=== PATIENT | female | born 1970 | race Two or more races ===

== ENCOUNTER 2018-02-24 07:30 | Inpatient (IN) ==
[2018-03-01 13:04] LABS: Basophils # 0.1 10*3/uL (0.0-0.2); Basophils % 0.9 % (0.0-0.8); Eosinophils # 0.1 10*3/uL (0.0-0.87); Eosinophils % 1.1 % (0.00-10.9); Hemoglobin 15.2 GM/DL (12.0-16.0); Immature Granulocytes % 0.4 %; Immature Granulocytes Absolute 0.03 #; Lymphocytes # 2.8 10*3/uL (1.4-4.0); Lymphocytes % 34.6 % (21.3-54.2); Mean Corpuscular HGB Conc 32.3 GM/DL (32-36); Mean Corpuscular Hemoglobin 27 PG (27-34); Mean Corpuscular Volume 83.6 FL (87-102); Mean Platelet Volume 9.1 FL (9.6-12.0); Monocytes # 0.5 10*3/uL (0.11-0.8); Monocytes % 6.7 % (1.7-12.7); Neutrophils # 4.5 10*3/uL (1.4-7.4); Neutrophils % 56.3 % (38.7-73.9); Platelet Count 297 T/CUMM (130-400); Red Blood Count 5.62 MC/CUMM (3.8-5.5); Red Cell Distribution Width 14.3 % (9.3-17.3)
[2018-03-01 13:27] LABS: Apearance,Urine CLEAR (Clear); Bilirubin,Urine Negative (Negative); Blood, Urine Negative (Negative); Glucose,Urine (UA) >=500 mg/dL (Negative); Ketones,Urine Negative (Negative); Mucus,Urine Occasional /LPF (Occasional); Nitrite,Urine Negative (Negative); Protein,Urine Negative; RBC,Urine 2 /HPF (0-4); Squamous Epithelial Cell,Urine Occasional /HPF (0-10); Urine Color Yellow (Yellow); Urine Specific Gravity 1.025 (1.001-1.035); Urine Urobilinogen < 2.0 EU/DL (0.2-1.0); WBC,Urine 4 /HPF (0-6)
[2018-03-01 13:47] LABS: Bilirubin,Total 0.7 MG/DL (0.2-1.0); Calcium 9.9 MG/DL (8.5-10.1); Potassium 4.1 MMOL/L (3.5-5.1); Risk Ratio 5.23; VLDL CHOLESTEROL 46.6 MG/DL
[2018-03-01 14:34] LABS: HIV Antigen/Antibody Result Nonreactive (Nonreactive)
[2018-03-04] MEDS ORDERED: AMPICILLIN/SULBACTAM 3,000 MG in SODIUM CHLORIDE 0.9% 100 ML IV ONE (06:00)
[2018-03-04] MEDS ORDERED: AMPICILLIN/SULBACTAM 3,000 MG VIAL ONE (07:33)
[2018-03-04] MEDS ORDERED: DIAZEPAM 5 MG TABLET PO ONE (07:55)
[2018-03-04] MEDS ORDERED: FAMOTIDINE 20 MG TABLET PO ONE (07:55)
[2018-03-04] MEDS ORDERED: SCOPOLAMINE 1.5 MG PATCH TRANSDERM ONE ×2 (07:55→08:09)
[2018-03-04] MEDS: LACTATED RINGERS 1,000 ML IV SCH ×2 (08:02→11:30)
[2018-03-04] MEDS ORDERED: FAMOTIDINE 20 MG TABLET ONE (08:09)
[2018-03-04] MEDS ORDERED: DIAZEPAM 5 MG TABLET ONE (08:09)
[2018-03-04] MEDS ORDERED: HYDROmorphone 2 MG/1 ML VIAL ONE ×2 (11:37→17:07)
[2018-03-04] MEDS ORDERED: BENZOCAINE/MENTHOL LOZENGE 18/BOX PO PRN (11:57)
[2018-03-04] MEDS ORDERED: ONDANSETRON 4 MG/2 ML VIAL IV PRN (11:57)
[2018-03-04] MEDS ORDERED: IBUPROFEN 800 MG TABLET PO PRN (11:57)
[2018-03-04] MEDS ORDERED: ACETAMINOPHEN 325 MG TABLET PO PRN (11:57)
[2018-03-04] MEDS ORDERED: BISACODYL 10 MG SUPP RECTAL PRN (11:57)
[2018-03-04] MEDS ORDERED: LACTATED RINGERS 1,000 ML IV SCH (12:00)
[2018-03-04] MEDS ORDERED: SEVOFLURANE 1 UNIT/15 MINUTE INH ONE (12:02)
[2018-03-04] MEDS ORDERED: MIDAZOLAM 2 MG/2 ML VIAL ONE (12:02)
[2018-03-04] MEDS ORDERED: PROPOFOL 200 MG/20 ML VIAL IV ONE (12:02)
[2018-03-04] MEDS ORDERED: ACETAMINOPHEN 1,000 MG/100 ML VIAL IV ONE (12:03)
[2018-03-04] MEDS ORDERED: METOPROLOL TARTRATE 5 MG/5 ML VIAL IV ONE (12:03)
[2018-03-04] MEDS ORDERED: ROCURONIUM 100 MG/10 ML VIAL IV ONE (12:03)
[2018-03-04] MEDS ORDERED: PROMETHAZINE 25 MG/1 ML VIAL ONE (12:03)
[2018-03-04] MEDS ORDERED: PHENYLEPHRINE 1 MG/10 ML SYRINGE IV ONE (12:03)
[2018-03-04] MEDS ORDERED: GLYCOPYRROLATE 0.4 MG/2 ML VIAL ONE (12:03)
[2018-03-04] MEDS ORDERED: NEOSTIGMINE 10 MG/10 ML VIAL ONE (12:03)
[2018-03-04] MEDS ORDERED: KETOROLAC 30 MG/1 ML VIAL ONE (12:03)
[2018-03-04] MEDS ORDERED: HYDROmorphone PCA 30 MG/30 ML SYRINGE IV ONE (12:17)
[2018-03-04 13:10] LABS: Apearance,Urine CLEAR (Clear); Bilirubin,Urine Negative (Negative); Blood, Urine Negative (Negative); Glucose,Urine (UA) >=500 mg/dL (Negative); Ketones,Urine Negative (Negative); Mucus,Urine Occasional /LPF (Occasional); Nitrite,Urine Negative (Negative); Protein,Urine Negative; RBC,Urine 1 /HPF (0-4); Squamous Epithelial Cell,Urine Occasional /HPF (0-10); Urine Color Yellow (Yellow); Urine Specific Gravity 1.023 (1.001-1.035); Urine Urobilinogen < 2.0 EU/DL (0.2-1.0); WBC,Urine <1 /HPF (0-6)
[2018-03-04] MEDS ORDERED: HYDROmorphone PCA 30 MG/30 ML SYRINGE IV SCH (13:24)
[2018-03-04] MEDS ORDERED: NALOXONE 0.4 MG/ML VIAL IV PRN (13:24)
[2018-03-04] MEDS ORDERED: INFLUENZA VIRUS VACCINE 0.5 ML SYRINGE IM ONE (13:42)
[2018-03-04] MEDS ORDERED: GLUCAGON 1 MG VIAL IM PRN ×2 (14:06→14:28)
[2018-03-04] MEDS ORDERED: DEXTROSE 50% 25 GM/50 ML VIAL IV PRN ×2 (14:06→14:28)
[2018-03-04] MEDS: SODIUM CHLORIDE 0.9% 1,000 ML IV SCH ×2 (14:14→22:15)
[2018-03-04] MEDS: INSULIN REGULAR 100 UNIT/ML SUBCUT SCH ×2 (14:38→20:34)
[2018-03-04] MEDS ORDERED: INSULIN REGULAR 100 UNIT/ML ONE (14:49)
[2018-03-04] MEDS: ceFAZolin 1,000 MG in SYRINGE 1 EACH IV SCH (17:45)
[2018-03-04 20:06] LABS: Basophils # 0.1 10*3/uL (0.0-0.2); Basophils % 0.4 % (0.0-0.8); Eosinophils % 0.2 % (0.00-10.9); Immature Granulocytes % 0.3 %; Immature Granulocytes Absolute 0.04 #; Lymphocytes % 16.4 % (21.3-54.2); Mean Corpuscular HGB Conc 32.1 GM/DL (32-36); Mean Corpuscular Hemoglobin 27 PG (27-34); Mean Corpuscular Volume 85.2 FL (87-102); Mean Platelet Volume 10.7 FL (9.6-12.0); Monocytes % 8.3 % (1.7-12.7); Neutrophils # 8.8 10*3/uL (1.4-7.4); Neutrophils % 74.4 % (38.7-73.9); Red Cell Distribution Width 14.5 % (9.3-17.3)
[2018-03-04 20:14] LABS: Hemoglobin 12.2 GM/DL (12.0-16.0); Platelet Count 126 T/CUMM (130-400); Red Blood Count 4.46 MC/CUMM (3.8-5.5); White Blood Count 11.9 T/CUMM (4-12)
[2018-03-05] MEDS: HYDROmorphone 2 MG/1 ML VIAL IV PRN ×2 (00:12→05:08)
[2018-03-05] MEDS: ceFAZolin 1,000 MG in SYRINGE 1 EACH IV SCH (02:16)
[2018-03-05] MEDS: INSULIN REGULAR 100 UNIT/ML SUBCUT SCH ×4 (02:24→21:04)
[2018-03-05 05:00] LABS: Basophils % 0.5 % (0.0-0.8); Eosinophils # 0.1 10*3/uL (0.0-0.87); Eosinophils % 0.8 % (0.00-10.9); Hematocrit 37.3 VOL% (35.7-47.0); Hemoglobin 11.7 GM/DL (12.0-16.0); Immature Granulocytes % 0.3 %; Immature Granulocytes Absolute 0.02 #; Lymphocytes # 2.5 10*3/uL (1.4-4.0); Mean Corpuscular HGB Conc 31.4 GM/DL (32-36); Mean Corpuscular Hemoglobin 27 PG (27-34); Mean Corpuscular Volume 86.1 FL (87-102); Monocytes # 0.7 10*3/uL (0.11-0.8); Monocytes % 9.1 % (1.7-12.7); Neutrophils # 4.5 10*3/uL (1.4-7.4); Neutrophils % 57.3 % (38.7-73.9); Platelet Count 217 T/CUMM (130-400); Red Blood Count 4.33 MC/CUMM (3.8-5.5); Red Cell Distribution Width 14.5 % (9.3-17.3); White Blood Count 7.8 T/CUMM (4-12)
[2018-03-05] MEDS: SODIUM CHLORIDE 0.9% 1,000 ML IV SCH (06:05)
[2018-03-05] MEDS: METOCLOPRAMIDE 10 MG/2 ML VIAL IV SCH ×2 (08:34→15:40)
[2018-03-05] MEDS: DOCUSATE SODIUM 100 MG CAPSULE PO PRN ×2 (08:34→20:52)
[2018-03-05] MEDS: metFORMIN 500 MG TABLET PO SCH ×2 (12:30→16:42)
[2018-03-05] MEDS: DULoxetine 30 MG CAPSULE PO SCH ×2 (12:39→20:52)
[2018-03-05] MEDS ORDERED: GLUCAGON 1 MG VIAL IM PRN (13:21)
[2018-03-05] MEDS: SIMETHICONE CHEW 80 MG TABLET PO PRN (22:05)
[2018-03-06] MEDS: METOCLOPRAMIDE 10 MG TABLET PO SCH ×3 (00:19→15:31)
[2018-03-06] MEDS: INSULIN REGULAR 100 UNIT/ML SUBCUT SCH ×4 (07:37→22:00)
[2018-03-06] MEDS: DOCUSATE SODIUM 100 MG CAPSULE PO PRN ×2 (08:34→22:01)
[2018-03-06] MEDS: MAGNESIUM HYDROXIDE SUSP 30 ML UDCUP PO PRN ×2 (08:34→22:01)
[2018-03-06] MEDS: metFORMIN 500 MG TABLET PO SCH ×2 (08:34→16:58)
[2018-03-06] MEDS: DULoxetine 30 MG CAPSULE PO SCH ×2 (08:35→22:01)
[2018-03-06] MEDS: SIMETHICONE CHEW 80 MG TABLET PO PRN (22:01)
[2018-03-07] MEDS: METOCLOPRAMIDE 10 MG TABLET PO SCH ×2 (00:20→09:01)
[2018-03-07 07:27] VITALS: BP 105/63
[2018-03-07] MEDS: DOCUSATE SODIUM 100 MG CAPSULE PO PRN (08:57)
[2018-03-07] MEDS: metFORMIN 500 MG TABLET PO SCH ×2 (08:57→12:08)
[2018-03-07] MEDS: DULoxetine 30 MG CAPSULE PO SCH (08:58)
[2018-03-07] MEDS: INSULIN REGULAR 100 UNIT/ML SUBCUT SCH (09:02)
[2018-03-07] MEDS: MAGNESIUM HYDROXIDE SUSP 30 ML UDCUP PO PRN (12:08)
[2018-03-07] MEDS: SIMETHICONE CHEW 80 MG TABLET PO PRN (12:08)
== END 2018-03-07 12:20 | disposition home or self-care (01) | DRG 743 ==
LOC: N.SDSINP 03-04 06:17 → N.OB 03-04 13:12
PROVIDERS: ADMIT Obstetrics & Gynecology; ATTEND Obstetrics & Gynecology